=== PATIENT | male | born 1985 | race Caucasian/White ===

== ENCOUNTER 2022-12-18 00:25 | Outpatient (CLI) | payer BC, SELFPAY ==
--- NOTE | 2022-12-18 08:03 | DI.RAD_ITS ---
Exam(s) XR KNEE LT 4V AP,LAT,CARI,PAT EXAM: XR KNEE LT 4V AP,LAT,CARI,PAT CLINICAL HISTORY: PATELLOFEMORAL SYNDROME,PATELLAR TENDERNESS,M25.569,M22.2S2,? ARTHRITIS OR. TECHNIQUE: 2D digital imaging was performed of the left knee. Four images were obtained. Merchant, AP, lateral and PA tunnel views were obtained. COMPARISON: No exams were available for comparison FINDINGS: BONES: No acute fracture is present. No bony destructive lesion is seen. JOINTS: The knee is normally aligned. No joint effusion is seen. SOFT TISSUE: Normal. IMPRESSION: Normal radiographs of the left knee. DATA REPOSITORY: RADIATION DOSE DELIVERED:
== END 2022-12-18 00:45 ==
LOC: DI 00:26
PROVIDERS: PCP Student in an Organized Health Care Education/Training Program; Visit Provider Student in an Organized Health Care Education/Training Program
DX: M22.2X2 Patellofemoral disorders, left knee (principal); M25.569 Pain in unspecified knee
CPT/HCPCS: 73564

== ENCOUNTER 2023-12-30 05:16 | Outpatient (CLI) | payer OTHER, SELFPAY ==
[2023-12-30 10:28] LABS: HGB 13.9 g/dL (13.5-17.5)
[2023-12-30 11:14] LABS: Anion Gap 8.6 mmol/L (3-11); BUN 21 mg/dL (7-18); CO2 29.4 mmol/L (21.0-32.0); Calcium 9.2 mg/dL (8.5-10.1); Calculated LDL 111 mg/dL (<100); Chloride 105 mmol/L (98-107); Cholesterol 171 mg/dL (<200); Estimated GFR 99.41 (mL/min/1.73m2); Glucose 93 mg/dL (74-106); HDL Cholesterol 53 mg/dL (40-60); Potassium 4.6 mmol/L (3.5-5.1); Sodium 143 mmol/L (136-145); Triglyceride 36 mg/dL (<150); Vitamin D 25 Total 17.5 ng/mL (30-100)
== END 2023-12-30 05:17 | disposition home or self-care (01) ==
LOC: LBO 05:16
PROVIDERS: PCP Student in an Organized Health Care Education/Training Program; Visit Provider Student in an Organized Health Care Education/Training Program
DX: Z13.220 Encounter for screening for lipoid disorders (principal); Z13.0 Encounter for screening for diseases of the blood and blood-forming organs and certain disorders involving the immune mechanism; Z13.21 Encounter for screening for nutritional disorder; Z91.89 Other specified personal risk factors, not elsewhere classified
CPT/HCPCS: 36415; 80048; 80061; 82306; 85018